=== PATIENT | female | born 1975 | race African-American/Black ===

== ENCOUNTER 2025-10-17 11:59 | Emergency (ER) | payer BC, MEDICAID ==
[~2025-10-17] VITALS: Ht 160 cm; Wt 58.0 kg
[2025-10-17 12:01] VITALS: BP 157/77; PULSE 65; RESP 18; TEMP 98.7; O2SAT 100
== END 2025-10-17 12:25 | disposition left against medical advice (07) ==
LOC: ER 11:59
DX: R10.9 Unspecified abdominal pain (principal); R19.7 Diarrhea, unspecified
CPT/HCPCS: 99281